=== PATIENT | male | born 1950 | race Caucasian/White ===

== ENCOUNTER → 2020-10-30 11:23 | Outpatient (CLI) | payer MEDICARE, SELFPAY ==
--- NOTE | ~2020-10-30 | XR_ITS ---
EXAMINATION: XR chest 2V DATE: 10/30/2020 11:39 INDICATION: Right-sided chest pain TECHNIQUE: PA and lateral views of the chest are obtained. COMPARISON: 03/26/2017 FINDINGS: There is a mass in the right upper lobe. Cranial migration of the minor fissure reflects ri ght upper lobe volume loss. There is no pleural effusion or pneumothorax. The cardiomediastinal silho uette is normal. There is mild thoracic spondylosis. IMPRESSION: 1. Right upper lobe mass concerning for primary bronchogenic carcinoma. Further evaluation with CT of the chest is recommended. These findings and recommendations were discussed with TANA Bruce at 1405 hours on 2020. Reviewed, dictated and finalized at location B. IMPRESSION: 1. Right upper lobe mass concerning for primary bronchogenic carcinoma. Further evaluation with CT of the chest is recommended. These findings and recommendations were discussed with TANA Bruce at 1405 hours on 10/30/2020.
== END ==
PROVIDERS: PCP Family Medicine; Visit Provider Nurse Practitioner Family
DX: R07.9 Chest pain, unspecified (principal); R91.8 Other nonspecific abnormal finding of lung field
CPT/HCPCS: 71046

== ENCOUNTER 2020-11-04 14:15 | Outpatient (CLI) | payer MEDICARE, SELFPAY ==
--- NOTE | ~2020-11-04 | CT_ITS ---
EXAMINATION: CT diagnostic chest w con DATE: 11/04/2020 14:42 INDICATION: Right upper lobe mass on chest radiograph TECHNIQUE: Transaxial computed tomographic images of the chest were obtained after the administration of 75 cc of Omnipaque 350 intravenous contrast. The dose-length product (DLP) was 197.53 mGy-cm. Ite rative reconstruction was used. COMPARISON: Chest x-ray dated 10/30/2020 FINDINGS: There is an approximately 7.9 x 4.9 cm mass in the posteromedial aspect of the right upper lobe which invades the mediastinum and insinuates posterior to the mid trachea. There are patchy nodu lar opacities of the left upper lobe. No pleural effusion or pneumothorax is identified. The heart si ze is normal. No pathologically enlarged thoracic lymph nodes are identified. There is calcified rosenda nary artery atherosclerosis. There is mild thoracic spondylosis. IMPRESSION: 1. Mass of the posterior medial right upper lobe invading the upper mediastinum, consistent with prim fran bronchogenic carcinoma. Reviewed, dictated and finalized at location A. IMPRESSION: 1. Mass of the posterior medial right upper lobe invading the upper mediastinum , consistent with primary bronchogenic carcinoma.
== END 2020-11-04 14:16 | disposition home or self-care (01) ==
LOC: ANHIMG 14:20
PROVIDERS: PCP Family Medicine; Visit Provider Nurse Practitioner Family
DX: R91.8 Other nonspecific abnormal finding of lung field (principal)
CPT/HCPCS: 71260; Q9967

== ENCOUNTER 2021-01-05 15:51 | Inpatient (IN) | payer MEDICARE, SELFPAY ==
[2021-01-05] VITALS (26 sets, daily range): BP systolic 91–128; BP diastolic 54–114; PULSE 82–105; RESP 17–28; TEMP 36.1–36.7; O2SAT 97–100; BMI 22.6
--- NOTE | ~2021-01-05 | CT_ITS ---
EXAMINATION: CT abdomen pelvis wo con DATE: 01/08/2021 08:34 INDICATION: Abdominal pain. TECHNIQUE: Computed tomography (CT) of the abdomen and pelvis was performed without intravenous contr ast. Automated exposure control and iterative reconstruction technique were employed. The dose-length product was 337.42 mGy-cm. COMPARISON: CT abdomen and pelvis 08/07/2013 FINDINGS: The visualized portions of the lung bases demonstrate minimal atelectasis. There is a small right pleural effusion. The heart size is normal. There are coronary artery calcifications. No peric ardial effusion. Calcifications in the spleen are consistent with old granulomatous disease. The gall bladder is normal in size. The pancreas and adrenal glands are normal. There are vascular calcificati ons at the unruly of the kidneys. There is mild bilateral hydronephrosis. The bladder is markedly diste nded and contains contrast. There is diverticulosis of the colon without evidence of diverticulitis. There are no pathologically enlarged lymph nodes. There is no free intraperitoneal fluid. There is mo derate lumbar spondylosis. IMPRESSION: 1. Markedly distended bladder with mild bilateral hydronephrosis. 2. Small right pleural effusion. Reviewed, dictated and finalized at location A. HT INSPECTOR
--- NOTE | ~2021-01-05 | CT_ITS ---
EXAMINATION: CT brain wo con DATE: 01/05/2021 19:20 INDICATION: Weakness. Fall. TECHNIQUE: Computed tomography (CT) of the head was performed without intravenous contrast. The mA wa s adjusted according to patient size. Iterative reconstruction technique was employed. The dose-lengt h product was 681.00 mGy-cm. COMPARISON: None FINDINGS: There is no intracranial hemorrhage, acute infarction, or abnormal intracranial mass lesion . The ventricles are normal in size. There is mucosal thickening in the paranasal sinuses. There is t hickening sclerosis of the cespedes of the sphenoid and right maxillary sinuses, consistent with chronic sinusitis. The orbits are normal. The mastoid air cells are normal. IMPRESSION: 1. Normal brain. 2. Chronic sinusitis. Reviewed, dictated and finalized at location A. UTER TECHNOLOGY INSTRUCTOR
--- NOTE | ~2021-01-05 | CT_ITS ---
EXAMINATION: CTA chest PE protocol DATE: 01/05/2021 17:28 INDICATION: Shortness of breath. TECHNIQUE: Computed tomography angiography (CTA) of the chest was performed with 100 mL Omnipaque-350 intravenous contrast timed to evaluate the pulmonary arteries. Coronal maximum intensity projection 3D-reconstructions were created by the technologist. Automated exposure control and iterative reconst ruction technique were employed. The dose-length product was 346.45 mGy-cm. COMPARISON: Chest CT 11/04/2020 FINDINGS: There is an 8.9 x 4.6 cm mass in the right upper lobe with invasion of the mediastinum and central cavitation. There is contiguous involvement of the T4 vertebral body and right fifth rib wher e there are lytic lesions of the bone. The mass measured 8.6 x 4.9 cm on 11/04/20. There is mucous in bronchus intermedius and right lower lobe and left upper lobe bronchi. Calcified right hilar lymph no simone are consistent with old granulomatous disease. There are centrilobular nodules in left upper lobe , consistent with pneumonia. There is a 6 mm nodule in left upper lobe abutting the major fissure, in creased from 5 mm. No pleural effusion. There is a right internal jugular port with tip in right atri um. There is mucous plugging in left upper lobe. The heart size is normal. No pericardial effusion. T here is no pulmonary embolus. There is moderate stenosis of left renal artery. There is mild thoracic spondylosis. IMPRESSION: 1. No pulmonary embolus. 2. Mass in right lung upper lobe with worsened involvement of the mediastinum, T4 vertebral body, and right fifth rib, consistent with primary bronchogenic carcinoma. 3. Worsened 6 mm nodule in left upper lobe suspicious for metastatic disease. 4. Multifocal mucus plugging and mild left upper lobe pneumonia. Reviewed, dictated and finalized at location A. PROCESS OPERATOR IMPRESSION: 1. No pulmonary embolus. 2. Mass in right lung upper lobe with worsened involvement of the mediastinum, T4 vertebral body, and right fifth rib, consistent with primary bronchogenic ca rcinoma. 3. Worsened 6 mm nodule in left upper lobe suspicious for metastatic disease. 4. Multifocal mucus plugging and mild left upper lobe pneumonia.
--- NOTE | 2021-01-05 15:59 | ECG_ITS ---
Measurements Intervals [place] Rate: 98 P: 90 WA: 124 QRS: 76 QRSD: 154 T: 51 QT: 386 QTc: 495 Interpretive Statements ECTOPIC ATRIAL RHYTHM RIGHT BUNDLE BRANCH BLOCK BASELINE ARTIFACT- I, II, III, AVR, AVL,A VF, V3-V6 ABNORMAL ECG Electronically Signed On 01-05-2021 20:11:25 FIELD MECHANIC/SITE LEAD by Darin Benjamin D.O.
--- NOTE | 2021-01-05 16:15 | ED.WEAKNESS ---
HPI - Weakness General Chief complaint: Weakness Stated complaint: weakness Time Seen by Provider: 01/05/21 15:56 Source: patient History of Present Illness HPI Narrative: Patient presents with generalized weakness. Reports a history of lung cancer had chemotherapy last Wednesday. Reports been weak for approximately 1 week. Has weakness as weak in the knees. Today he felt down so he wanted come to the ER for evaluation he denies striking his head denies any focal areas of pain or injury from the fall. Denies any chest pain. Does report constant shortness of breath denies any nausea vomiting or change in p.o. intake denies any changes in stool or urine output. Related Data Home Medications Medication Instructions Recorded Confirmed aspirin 81 mg tablet,delayed 81 mg PO DAILY 08/02/19 12/18/20 release atorvastatin 40 mg tablet 40 mg PO DAILY 08/02/19 12/18/20 carvedilol 25 mg tablet 25 mg PO Q12H 08/02/19 12/18/20 lisinopril 40 mg tablet 40 mg PO DAILY 08/02/19 12/18/20 Allergies Allergy/AdvReac Type Severity Reaction Status Date / Time No Known Allergies Allergy Unknown Unverified 01/05/21 16:20 Review of Systems Review of Systems: CONSTITUTIONAL: Denies fever, chills, or sweats. EYES: Denies visual changes, redness, or discharge. ENT: Denies rhinorrhea, congestion, sore throat, or otalgia. CARDIOVASCULAR: Denies chest pain, palpitations, or edema. RESPIRATORY: Denies cough GASTROINTESTINAL: Denies abdominal pain, nausea, vomiting, or diarrhea. GENITOURINARY: Denies dysuria or hematuria. SKIN: Denies rash or itching. MUSCULOSKELETAL: Denies back pain, joint pain, or myalgia. NEUROLOGIC: Denies headache, numbness, dizziness, or weakness. PSYCHIATRIC: Denies anxiety or depression. All systems reviewed & are unremarkable except as noted in HPI and below PMFSH Past Medical History Medical History CAD (coronary artery disease) COPD (chronic obstructive pulmonary disease) Dyslipidemia Hypertensive heart disease IFG (impaired fasting glucose) Social History Social History Smoking packs per day: 0.5 Smoking cigarettes per day: 10.0 Years smoked: 50 Smoking pack-years: 25.00 Tobacco type: cigarettes Second hand tobacco smoke exposure: No Alcohol intake: current Drinks per week: 6 Substance use: never Substance use type: does not use Gender identity (if verbalized by the patient): Male Sexual Orientation (if Verbalized by the Patient): Straight or Heterosexual Exam Narrative: GENERAL: Well-appearing, well-nourished, and in no acute distress. HEAD: Normocephalic, atraumatic. EYES: PERRLA and EOMI. ENT: Nares clear, no rhinorrhea or epistaxis. Mucous membranes moist. NECK: Supple. No masses. No JVD CHEST: Audible rhonchi more prominent on the right compared to the left there is diminished aeration more prevalent on the right compared to the left HEART: Regular rate and rhythm. No murmur heard. Normal peripheral pulses. ABDOMEN: Soft, nontender, nondistended, normal active bowel sounds. EXTREMITIES: Normal range of motion. No edema. SKIN: Warm, dry, no rash. NEURO: No focal deficits. Alert and oriented x3. PSYCH: Normal mood and affect. Course Reevaluation(s) Reevaluation #1: Patient ports he continues to feel weak labs are with mild abnormalities imaging concerning for worsening mass and pneumonia. Family reports they are unable to assist with getting patient around the house given his persistent symptoms, history of chemotherapy, pneumonia on imaging patient is high risk for severe sepsis he will be admitted for IV antibiotics and continued monitoring Date: 01/05/21 Time: 18:07 Vital Signs Vital signs: Vital Signs Temperature 36.4 C 01/05/21 15:50 Pulse Rate 98 01/05/21 15:50 Respiratory Rate 24 H 01/05/21 15:50 Blood Pressure 111/54 L 01/05/21 15:50 Pulse Oximet
[2021-01-05 16:25] LABS: Basophils Percent Auto 0.5 % (0.2-1.2); Eosinophils Percent Auto 0.8 % (0-4.4); Hematocrit 25.2 % (42.0-52.0); Hemoglobin 8.2 g/dL (14.0-18.0); Immature Granulocyte Absolute 0.04 K/mm3 (0.00-0.031); Immature Granulocyte Percent A 1.1 % (0-0.5); Immature Platelet Fraction Pct 5.2 % (0.9-11.2); Lymphocytes Absolute Auto 0.25 K/mm3 (0.9-3.2); Lymphocytes Percent Auto 6.6 % (18.3-44.2); Mean Corpuscular HGB Conc 32.5 g/dl (32-36); Mean Corpuscular Hemoglobin 25.9 pg (26-34); Mean Corpuscular Volume 79.7 fl (80-100); Mean Platelet Volume 10.5 fl (7.4-10.4); Monocytes Absolute Auto 0.2 K/mm3 (0.1-0.6); Monocytes Percent Auto 5.3 % (2.6-8.5); Neutrophils Absolute Auto 3.3 K/mm3 (1.3-6.7); Neutrophils Percent Auto 85.7 % (45.5-73.1); Platelet Count Result 144 k/mm3 (150-375); Red Blood Count 3.16 M/mm3 (4.6-6.20); Red Cell Distribution Width 16.9 % (11.5-14.5); White Blood Count 3.8 K/mm3 (4.5-10.0)
[2021-01-05 16:34] LABS: Alanine Aminotransferase 20 U/L (4-50); Albumin Level 3.7 g/dL (3.5-5.1); Alkaline Phosphatase 70 U/L (38-126); Anion Gap 14 mmol/L (8-16); Aspartate Amino Transferase 24 U/L (17-59); Bilirubin,Total 0.6 mg/dL (0.2-1.3); Blood Urea Nitrogen 22 mg/dL (9-20); Calcium 6.8 mg/dL (8.4-10.2); Carbon Dioxide 22 mmol/L (22-30); Chloride 97 mmol/L (98-107); Estimated CRCL calculation 55 ml/min; Estimated Glomerular Filt Rate > 60; Glucose 144 mg/dL (65-110); Potassium 3.9 mmol/L (3.4-5.0); Sodium 133 mmol/L (137-145)
[2021-01-05 17:24] LABS: Add Urine Microscopic? YES; Appearance Urine Cloudy (Clear); Bilirubin Urine Negative (Negative); Blood Urine Negative (Negative); Color Urine Yellow (Yellow); Glucose Urine UA Negative (Negative); Ketones Urine Negative (Negative); Leukocyte Esterase Ur Negative LEU/UL (Negative); Mucus Urine Rare /lpf; Nitrate Urine Negative (Negative); Protein Urine Negative (Negative); RBC Urine 0-2 /hpf (0-2); Specific Grav Ur 1.016 (1.001-1.035); Squamous Epithelial Cell Urine Rare /hpf (Few); Urobilinogen Urine Negative mg/dL (<2.0); WBC Urine 0-3 /hpf
[2021-01-05] MEDS: SODIUM CHLORIDE 0.9% IV 1,000 ML 999 ML IV CONT (18:10)
[2021-01-05 18:31] LABS: Lactic Acid Reflex 0.8 mmol/L (0.7-2.1)
--- NOTE | 2021-01-05 19:56 | PM.IMHP ---
H&P: HPI History of Present Illness Date/Time: 01/05/21 19:56 Chief Complaint: Generalized weakness Narrative: This is a 70-year-old male with past medical history significant for lung CA patient is currently undergoing radiation and chemotherapy he had his last treatment last past Wednesday he presented today to the emergency room due to generalized weakness states that has been sleeping a lot staying all day in bed poor appetite he try getting up and his knees buckled on him he has been feeling cold just overall not feeling well has a cough and chest congestion but is unable to bring anything up. He denies any loss of consciousness but his been lightheaded, denies any fevers, any rigors or chills, no nausea, vomiting or diarrhea. Preliminary workup was significant for CBC showed a hemoglobin of 8 with MCV of [address] of the chest PE protocol for no pulmonary embolus,mass in right lung upper lobe with worsened involvement of the mediastinum, T4 vertebral body, and right fifth rib, consistent with primary bronchogenic carcinoma, worsened 6 mm nodule in left upper lobe suspicious for metastatic disease,multifocal mucus plugging and mild left upper lobe pneumonia. Patient has been admitted for further treatment evaluation and management. Review of Systems Review of Systems: Feeling weak ,poor appetite, sleeping a lot, fall. Constitutional: Constitutional: Denies chills, Reports daytime sleepiness, Denies fever(s), Reports frequent falls, Reports lethargy, Denies malaise, Reports poor appetite and Reports weakness Eyes: Eyes: Denies change in vision ENT: Denies dysphagia, Denies vertigo, Denies dizziness, Denies nasal congestion, Denies nasal discharge, Denies nasal obstruction and Denies odynophagia Cardiovascular: Cardiovascular: Denies pedal edema, Denies irregular heart rhythm, Denies lightheadedness, Denies radiating jaw, neck or arm pain, Denies palpitations, Denies dyspnea, Denies dyspnea on exertion and Denies orthopnea Gastrointestinal: Gastrointestinal: Denies abdominal pain, Denies dyspepsia, Denies heartburn, Denies nausea and Denies vomiting Genitourinary: Genitourinary: Denies dysuria Musculoskeletal: Musculoskeletal: Reports muscle weakness Integumentary/Breasts: Skin/Breast: Denies rash Psychiatric: Psychiatric: Reports no additional psychiatric complaints and Reports as per HPI Endocrine: Endocrine: Reports no additional endocrine complaints and Reports as per HPI Hematologic/Lymphatic: Hematologic/Lymphatic: Reports no additional hematologic/lymphatic complaints Allergic/Immunologic: Allergic/Immunologic: Reports no additional allergic/immunologic complaints and Reports as per HPI [facility] Past Medical History Medical History CAD (coronary artery disease) COPD (chronic obstructive pulmonary disease) Dyslipidemia Hypertensive heart disease IFG (impaired fasting glucose) Social History Social History Smoking packs per day: 1 Smoking cigarettes per day: 20.0 Years smoked: 40 Smoking pack-years: 40.00 Smoking status: Former smoker Tobacco type: cigarettes Second hand tobacco smoke exposure: No Alcohol intake: current Drinks per week: 8 Substance use: never Substance use type: does not use Gender identity (if verbalized by the patient): Male Sexual Orientation (if Verbalized by the Patient): Straight or Heterosexual Spiritual care concerns: No Meds Home Medications and Allergies Home Medications Medication Instructions Recorded Confirmed Type aspirin 81 mg tablet,delayed 81 mg PO DAILY 08/02/19 12/18/20 History release atorvastatin 40 mg tablet 40 mg PO DAILY 08/02/19 12/18/20 History carvedilol 25 mg tablet 25 mg PO Q12H 08/02/19 12/18/20 History lisinopril 40 mg tablet 40 mg PO DAILY 08/02/19 12/18/20 History pantoprazole 40 mg tablet,delayed 40 mg PO BID #180 tablet 06/18/20
[2021-01-05] MEDS: SODIUM CHLORIDE 0.9% IV 1,000 ML 125 ML IV CONT (22:45)
--- NOTE | 2021-01-05 23:12 | PC.NURSE ---
This patient, Pratik Chapman Jr., was admitted to [facility] Surg Room 306-02. Patient/family oriented to hospital policies and general routines including ID bracelet, bed and alarms, visiting hours, pain management, procedures, bathroom and other care routines, personal items, smoking policy, room service/diet, and visiting hours. Information on how to activate the Rapid Response Team has been discussed. Patient/Family are encouraged to report perceived risks to care and to ask questions if they do not understand what they are told or what they should do.
[2021-01-06] VITALS (21 sets, daily range): BP systolic 97–163; BP diastolic 60–73; PULSE 72–125; RESP 16–22; TEMP 36.1–36.8; O2SAT 98–100
[2021-01-06 02:30] LABS: Glucose Point of Care 100 mg/dl (65-105)
--- NOTE | 2021-01-06 03:19 | PC.NURSE ---
Pt woke up with complaints of shortness of breath. Put patient on 2L of oxygen for comfort. Oxygen saturation is 96%, pulse is 99, blood pressure is 121/84, temperature is 97.2, respirations are 18. Brought patient down to 1L and oxygen saturation is now 99%. Patient presents with coarse lung sounds and wheezing on expiration. Called doctor Foster at 0320 wanting orders for respiratory treatments. No response at this time. Will call back in 15 minutes.
--- NOTE | 2021-01-06 04:50 | PC.NURSE ---
Spoke with Dr Foster at 0400 regarding patients changing condition. New orders were given and put in.
[2021-01-06] MEDS: ALBUTEROL SULFATE NEB 2.5 MG/0.5 ML INH INHALATION ×5 (05:56→19:48)
[2021-01-06] MEDS: IPRATROPIUM BR 0.02% INH SOLN 0.5 MG/2.5 ML VIAL INHALATION ×5 (05:56→19:48)
[2021-01-06] MEDS: ACETYLCYSTEINE 20% INHAL SOLN 800 MG/4 ML VIAL 200 MG INHALATION ×2 (08:12→19:48)
[2021-01-06 09:11] LABS: Hematocrit 22.7 % (42.0-52.0); Hemoglobin 7.3 g/dL (14.0-18.0); Mean Corpuscular HGB Conc 32.2 g/dl (32-36); Mean Corpuscular Hemoglobin 25.1 pg (26-34); Mean Platelet Volume 10.4 fl (7.4-10.4); Platelet Count Result 115 k/mm3 (150-375); Red Blood Count 2.91 M/mm3 (4.6-6.20); Red Cell Distribution Width 16.9 % (11.5-14.5); White Blood Count 3.3 K/mm3 (4.5-10.0)
[2021-01-06 09:16] LABS: Anion Gap 11 mmol/L (8-16); Blood Urea Nitrogen 15 mg/dL (9-20); Calcium 6.2 mg/dL (8.4-10.2); Carbon Dioxide 25 mmol/L (22-30); Chloride 97 mmol/L (98-107); Estimated CRCL calculation 60 ml/min; Estimated Glomerular Filt Rate > 60; Glucose 101 mg/dL (65-110); Potassium 3.3 mmol/L (3.4-5.0); Sodium 133 mmol/L (137-145)
[2021-01-06] MEDS: ATORVASTATIN 40 MG TABLET PO (10:09)
[2021-01-06] MEDS: ASPIRIN 81 MG ENTERIC TABLET PO (10:09)
[2021-01-06] MEDS: PANTOPRAZOLE 40 MG TABLET PO ×2 (10:09→17:00)
--- NOTE | 2021-01-06 10:20 | PM.IMPN ---
Progress Note: A&P Assessment and Plan (1) Pneumonia: Qualifiers: Laterality: right Lung location: upper lobe of lung Pneumonia type: due to unspecified organism Qualified Code(s): J18.9 - Pneumonia, unspecified organism Code(s): J18.9 - Pneumonia, unspecified organism Status: Acute Assessment and Plan: Chest CTA shows mucus plugging of the left upper lobe and he presents with respiratory symptoms. No fever or leukocytosis, though he is immunocompromised and likely not able to amount immune response Continue IV Zosyn Blood cultures are pending Supportive care to include bronchodilators, expectorants, antipyretics, and incentive spirometry Appreciate respiratory therapy evaluation. Continue with CPT techniques Currently requiring 1 L per nasal cannula, though no episodes of hypoxia are noted. Continue supplemental O2 as needed with goal saturation 92% or above, wean to goal. (2) Malignant neoplasm of right upper lobe of lung: Code(s): C34.11 - Malignant neoplasm of upper lobe, right bronchus or lung Status: Acute Assessment and Plan: CTA shows right upper lung mass with involvement of the mediastinum, T4 vertebral body, and right 5th rib with. He is undergoing chemotherapy with Taxol and carboplatin, last chemo was 12/31/2020. Also undergoing radiation therapy Wednesday-Wednesday. Managed by oncologist, Dr. Brown at [facility]. Spoke with their office via phone and reviewed imaging reports, no change from prior imaging 12/17/2020 per phone report. The patient is scheduled for an appointment tomorrow with his oncologist. Their office is aware of his hospitalization and will contact him to reschedule follow-up, possibly for 01/10/2021 (3) COPD (chronic obstructive pulmonary disease): Code(s): J44.9 - Chronic obstructive pulmonary disease, unspecified Status: Acute Assessment and Plan: No wheezing, not in acute exacerbation. Continue bronchodilators (4) CAD (coronary artery disease): Code(s): I25.10 - Atherosclerotic heart disease of [place] coronary artery without angina pectoris Status: Acute Assessment and Plan: No acute issues. Continue carvedilol and lisinopril. Nitroglycerin p.r.n. (5) Weakness: Code(s): R53.1 - Weakness Status: Acute Assessment and Plan: Likely secondary to malignancy and recent chemotherapy and radiation treatments, likely worsened by pneumonia. He reports he ?collapsed? and his legs and knees gave out on him. He did not fall and his son was able to lower him to the ground. Appreciate PT/OT evals. (6) Poor appetite: Code(s): R63.0 - Anorexia Status: Acute Assessment and Plan: Decreased appetite. Continue gentle IV fluids in light of poor PO intake. Dietary supplements t.i.d.. Encourage p.o. intake. Hopefully his appetite will improve as he begins feeling better with treatment as described above. (7) Pancytopenia: Code(s): D61.818 - Other pancytopenia Status: Acute Assessment and Plan: Likely related to chemotherapy. White blood cell count 3300. Platelets slightly decreased at 115k. Hemoglobin and hematocrit decreased on baseline, though no prior labs to establish a baseline. Hemoglobin was 8.2 on presentation and declined to 7.3 today. He denies any episodes of bleeding. Vital signs are stable. Will repeat H&H this afternoon to ensure remaining stable, will also check iron panel. Consider Hematology consultation if no further improvement. (8) Hypokalemia: Code(s): E87.6 - Hypokalemia Status: Acute Assessment and Plan: Likely secondary to poor p.o. intake. Administer KCL 20 mEq p.o. one time. Continue to monitor BMP Subjective Date/time seen: 01/06/21 10:20 Interval history: Date of service: 01/06/2021 Pratik Chapman is a 70 year old male with a history of CAD, COPD, HTN, hyperlipidemi
[2021-01-06] MEDS: ONDANSETRON INJ 4 MG/2 ML VIAL IV PUSH (11:28)
[2021-01-06 12:43] LABS: Hematocrit 26.3 % (42.0-52.0); Hemoglobin 8.3 g/dL (14.0-18.0)
[2021-01-06] MEDS: carvediloL 25 MG TABLET PO ×2 (12:52→20:54)
[2021-01-06] MEDS: POTASSIUM CHLORIDE 20 MEQ TABLET PO (12:52)
[2021-01-06 13:17] LABS: Iron 54 ug/dL (49-181)
[2021-01-06 13:18] LABS: Percent Iron Saturation 18 % (20-50)
[2021-01-06 14:05] LABS: Glucose Point of Care 192 mg/dl (65-105)
--- NOTE | 2021-01-06 18:20 | PC.NURSE ---
Attempted to obtain orthostatics, but pt unable/unwilling to stand. Pt appears very anxious about having to stand.
--- NOTE | 2021-01-06 19:59 | PCRCNOTE ---
pt unable to do full CPT treatment due to pain in the chest from the vest- went until 4 minutes left
[2021-01-07] VITALS (25 sets, daily range): BP systolic 108–129; BP diastolic 59–89; PULSE 76–93; RESP 16–20; TEMP 36.2–38.1; O2SAT 92–100
[2021-01-07] MEDS: IPRATROPIUM BR 0.02% INH SOLN 0.5 MG/2.5 ML VIAL INHALATION ×5 (00:12→21:12)
[2021-01-07] MEDS: ALBUTEROL SULFATE NEB 2.5 MG/0.5 ML INH INHALATION ×5 (00:12→21:12)
[2021-01-07] MEDS: SODIUM CHLORIDE 0.9% IV 1,000 ML 50 ML IV CONT (03:18)
[2021-01-07 07:33] LABS: Basophils Percent Auto 0.6 % (0.2-1.2); Eosinophils Absolute Auto 0.1 K/mm3 (0-0.3); Eosinophils Percent Auto 1.5 % (0-4.4); Hematocrit 22.3 % (42.0-52.0); Immature Granulocyte Absolute 0.04 K/mm3 (0.00-0.031); Immature Granulocyte Percent A 1.2 % (0-0.5); Lymphocytes Absolute Auto 0.25 K/mm3 (0.9-3.2); Lymphocytes Percent Auto 7.6 % (18.3-44.2); Mean Corpuscular HGB Conc 30.9 g/dl (32-36); Mean Corpuscular Hemoglobin 25.2 pg (26-34); Mean Corpuscular Volume 81.4 fl (80-100); Mean Platelet Volume 10.3 fl (7.4-10.4); Monocytes Absolute Auto 0.3 K/mm3 (0.1-0.6); Monocytes Percent Auto 10.3 % (2.6-8.5); Neutrophils Absolute Auto 2.6 K/mm3 (1.3-6.7); Neutrophils Percent Auto 78.8 % (45.5-73.1); Platelet Count Result 94 k/mm3 (150-375); Red Blood Count 2.74 M/mm3 (4.6-6.20); Red Cell Distribution Width 17.3 % (11.5-14.5); White Blood Count 3.3 K/mm3 (4.5-10.0)
[2021-01-07 07:34] LABS: Hemoglobin 6.9 g/dL (14.0-18.0)
[2021-01-07 07:49] LABS: Alanine Aminotransferase 17 U/L (4-50); Albumin Level 3.2 g/dL (3.5-5.1); Alkaline Phosphatase 58 U/L (38-126); Anion Gap 9 mmol/L (8-16); Aspartate Amino Transferase 25 U/L (17-59); Bilirubin,Total 0.6 mg/dL (0.2-1.3); Blood Urea Nitrogen 15 mg/dL (9-20); Carbon Dioxide 25 mmol/L (22-30); Chloride 99 mmol/L (98-107); Estimated CRCL calculation 60 ml/min; Estimated Glomerular Filt Rate > 60; Glucose 99 mg/dL (65-110); Magnesium < 0.2 mg/dL (1.6-2.3); Potassium 3.4 mmol/L (3.4-5.0); Sodium 133 mmol/L (137-145)
--- NOTE | 2021-01-07 08:16 | PM.IMPN ---
Progress Note: A&P Assessment and Plan (1) Pneumonia: Qualifiers: Laterality: right Lung location: upper lobe of lung Pneumonia type: due to unspecified organism Qualified Code(s): J18.9 - Pneumonia, unspecified organism Code(s): J18.9 - Pneumonia, unspecified organism Status: Acute Assessment and Plan: Chest CTA shows mucus plugging of the left upper lobe and he presents with respiratory symptoms. No fever or leukocytosis, though he is immunocompromised and likely not able to amount immune response Continue IV Zosyn Blood cultures are pending Supportive care to include bronchodilators, expectorants, antipyretics, and incentive spirometry Appreciate respiratory therapy evaluation. Continue with CPT techniques Currently requiring 1 L per nasal cannula, though no episodes of hypoxia are noted. Continue supplemental O2 as needed with goal saturation 92% or above, wean to goal. continue acetyl cystein inhalation, PEP therapy, (2) Malignant neoplasm of right upper lobe of lung: Code(s): C34.11 - Malignant neoplasm of upper lobe, right bronchus or lung Status: Acute Assessment and Plan: CTA shows right upper lung mass with involvement of the mediastinum, T4 vertebral body, and right 5th rib with. He is undergoing chemotherapy with Taxol and carboplatin, last chemo was 12/31/2020. Also undergoing radiation therapy Wednesday-Wednesday. Managed by oncologist, Dr. Brown at [facility]. Spoke with their office via phone and reviewed imaging reports, no change from prior imaging 12/17/2020 per phone report. The patient is scheduled for an appointment tomorrow with his oncologist. Their office is aware of his hospitalization and will contact him to reschedule follow-up, possibly for 01/10/2021 (3) COPD (chronic obstructive pulmonary disease): Code(s): J44.9 - Chronic obstructive pulmonary disease, unspecified Status: Acute Assessment and Plan: No wheezing, not in acute exacerbation. Continue bronchodilators (4) CAD (coronary artery disease): Code(s): I25.10 - Atherosclerotic heart disease of [place] coronary artery without angina pectoris Status: Acute Assessment and Plan: No acute issues. Continue carvedilol and lisinopril. Nitroglycerin p.r.n. (5) Weakness: Code(s): R53.1 - Weakness Status: Acute Assessment and Plan: Likely secondary to malignancy and recent chemotherapy and radiation treatments, likely worsened by pneumonia. He reports he ?collapsed? and his legs and knees gave out on him. He did not fall and his son was able to lower him to the ground. Appreciate PT/OT evals. (6) Poor appetite: Code(s): R63.0 - Anorexia Status: Acute Assessment and Plan: Decreased appetite. Continue gentle IV fluids in light of poor PO intake. Dietary supplements t.i.d.. Encourage p.o. intake. Hopefully his appetite will improve as he begins feeling better with treatment as described above. (7) Pancytopenia: Code(s): D61.818 - Other pancytopenia Status: Acute Assessment and Plan: Likely related to chemotherapy. White blood cell count 3300. Platelets slightly decreased at 115k. Hemoglobin and hematocrit decreased on baseline, though no prior labs to establish a baseline. Hemoglobin was 8.2 on presentation and declined to 7.3 today. He denies any episodes of bleeding. Vital signs are stable. Will repeat H&H this afternoon to ensure remaining stable, will also check iron panel. Consider Hematology consultation if no further improvement. hb down to 6.9, will transfuse one unit prbc. check occult blood for any bleeding source. likely from chemotherapy. Will get CT abdomen and pelvis to rule out any occult bleeding due to drop in his H&H since admission (8) Hypokalemia: Code(s): E87.6 - Hypokalemia Status: Acute Assessment and Plan: Likely secondary
[2021-01-07] MEDS: ACETYLCYSTEINE 20% INHAL SOLN 800 MG/4 ML VIAL 200 MG INHALATION ×2 (08:28→21:12)
[2021-01-07] MEDS: MAGNESIUM SULF 4 GM/WATER100ML 4 GM/100 ML BAG IVPB (09:05)
[2021-01-07] MEDS: POTASSIUM CHLORIDE 20 MEQ TABLET 40 MEQ PO (09:11)
[2021-01-07] MEDS: ATORVASTATIN 40 MG TABLET PO (09:12)
[2021-01-07] MEDS: ASPIRIN 81 MG ENTERIC TABLET PO (09:12)
[2021-01-07] MEDS: carvediloL 25 MG TABLET PO ×2 (09:12→21:16)
[2021-01-07] MEDS: PANTOPRAZOLE 40 MG TABLET PO ×2 (09:12→17:18)
--- NOTE | 2021-01-07 10:30 | PC.NURSE ---
On 01/07/21, the student, [Ish Marie ], provided care and completed [facility] documentation on this patient. I have reviewed the student's documentation and agree with the findings.
[2021-01-07 11:13] LABS: IFOB Positive Control Positive; Immunochemical Fecal Occult Bl Positive (N)
--- NOTE | 2021-01-07 13:09 | PCRCNOTE ---
Window of time for administration has passed. See next scheduled administration.
[2021-01-07] MEDS: SODIUM CHLORIDE 0.9% IV 250 ML 30 ML IV CONT (13:25)
[2021-01-08] VITALS (16 sets, daily range): BP systolic 101–123; BP diastolic 47–65; PULSE 75–92; RESP 16–18; TEMP 36.4–36.8; O2SAT 93–100
[2021-01-08] MEDS: ALBUTEROL SULFATE NEB 2.5 MG/0.5 ML INH INHALATION ×5 (00:33→21:54)
[2021-01-08] MEDS: IPRATROPIUM BR 0.02% INH SOLN 0.5 MG/2.5 ML VIAL INHALATION ×5 (00:33→21:54)
[2021-01-08] MEDS: SODIUM CHLORIDE 0.9% IV 1,000 ML 50 ML IV CONT (06:22)
[2021-01-08 06:30] LABS: Basophils Percent Auto 0.3 % (0.2-1.2); Eosinophils Absolute Auto 0.1 K/mm3 (0-0.3); Eosinophils Percent Auto 1.7 % (0-4.4); Hematocrit 25.5 % (42.0-52.0); Immature Granulocyte Absolute 0.04 K/mm3 (0.00-0.031); Immature Granulocyte Percent A 1.4 % (0-0.5); Lymphocytes Absolute Auto 0.29 K/mm3 (0.9-3.2); Lymphocytes Percent Auto 9.9 % (18.3-44.2); Mean Corpuscular HGB Conc 31.4 g/dl (32-36); Mean Corpuscular Hemoglobin 25.5 pg (26-34); Mean Corpuscular Volume 81.2 fl (80-100); Mean Platelet Volume 10.1 fl (7.4-10.4); Monocytes Absolute Auto 0.3 K/mm3 (0.1-0.6); Monocytes Percent Auto 10.5 % (2.6-8.5); Neutrophils Absolute Auto 2.2 K/mm3 (1.3-6.7); Neutrophils Percent Auto 76.2 % (45.5-73.1); Platelet Count Result 99 k/mm3 (150-375); Red Blood Count 3.14 M/mm3 (4.6-6.20); White Blood Count 2.9 K/mm3 (4.5-10.0)
[2021-01-08 06:36] LABS: Anion Gap 9 mmol/L (8-16); Blood Urea Nitrogen 10 mg/dL (9-20); Carbon Dioxide 25 mmol/L (22-30); Chloride 101 mmol/L (98-107); Estimated CRCL calculation 67 ml/min; Estimated Glomerular Filt Rate > 60; Glucose 96 mg/dL (65-110); Magnesium 1.1 mg/dL (1.6-2.3); Potassium 3.2 mmol/L (3.4-5.0); Sodium 135 mmol/L (137-145)
--- NOTE | 2021-01-08 08:28 | PC.NURSE ---
Pt transfers CT scan via bed at 0825.
[2021-01-08] MEDS: MAGNESIUM SULF 2 GM/WATER 50ML 2 GM/50 ML BAG IVPB (08:44)
[2021-01-08] MEDS: POTASSIUM CHLORIDE 20 MEQ TABLET 40 MEQ PO (08:44)
[2021-01-08] MEDS: carvediloL 25 MG TABLET PO ×2 (08:44→23:00)
[2021-01-08] MEDS: ATORVASTATIN 40 MG TABLET PO (08:44)
[2021-01-08] MEDS: ASPIRIN 81 MG ENTERIC TABLET PO (08:46)
[2021-01-08] MEDS: PANTOPRAZOLE 40 MG TABLET PO ×2 (08:46→18:17)
[2021-01-08] MEDS: FLUTICASONE PROPIONATE 0.05% NA SPR 16 GM BTL (*BKC) 1 SPRAY NASAL (08:47)
--- NOTE | 2021-01-08 09:41 | PM.IMPN ---
Progress Note: A&P Assessment and Plan (1) Pneumonia: Qualifiers: Laterality: right Lung location: upper lobe of lung Pneumonia type: due to unspecified organism Qualified Code(s): J18.9 - Pneumonia, unspecified organism Code(s): J18.9 - Pneumonia, unspecified organism Status: Acute Assessment and Plan: Chest CTA shows mucus plugging of the left upper lobe and he presents with respiratory symptoms. No fever or leukocytosis, though he is immunocompromised and likely not able to amount immune response Continue IV Zosyn Blood cultures are pending Supportive care to include bronchodilators, expectorants, antipyretics, and incentive spirometry Appreciate respiratory therapy evaluation. Continue with CPT techniques Currently requiring 1 L per nasal cannula, though no episodes of hypoxia are noted. Continue supplemental O2 as needed with goal saturation 92% or above, wean to goal. continue acetyl cystein inhalation, PEP therapy, (2) Malignant neoplasm of right upper lobe of lung: Code(s): C34.11 - Malignant neoplasm of upper lobe, right bronchus or lung Status: Acute Assessment and Plan: CTA shows right upper lung mass with involvement of the mediastinum, T4 vertebral body, and right 5th rib with. He is undergoing chemotherapy with Taxol and carboplatin, last chemo was 12/31/2020. Also undergoing radiation therapy Wednesday-Wednesday. Managed by oncologist, Dr. Brown at [facility]. Spoke with their office via phone and reviewed imaging reports, no change from prior imaging 12/17/2020 per phone report. The patient is scheduled for an appointment tomorrow with his oncologist. Their office is aware of his hospitalization and will contact him to reschedule follow-up, possibly for 01/10/2021 (3) COPD (chronic obstructive pulmonary disease): Code(s): J44.9 - Chronic obstructive pulmonary disease, unspecified Status: Acute Assessment and Plan: No wheezing, not in acute exacerbation. Continue bronchodilators (4) CAD (coronary artery disease): Code(s): I25.10 - Atherosclerotic heart disease of [place] coronary artery without angina pectoris Status: Acute Assessment and Plan: No acute issues. Continue carvedilol and lisinopril. Nitroglycerin p.r.n. (5) Weakness: Code(s): R53.1 - Weakness Status: Acute Assessment and Plan: Likely secondary to malignancy and recent chemotherapy and radiation treatments, likely worsened by pneumonia. He reports he ?collapsed? and his legs and knees gave out on him. He did not fall and his son was able to lower him to the ground. Appreciate PT/OT evals. (6) Poor appetite: Code(s): R63.0 - Anorexia Status: Acute Assessment and Plan: Decreased appetite. Continue gentle IV fluids in light of poor PO intake. Dietary supplements t.i.d.. Encourage p.o. intake. Hopefully his appetite will improve as he begins feeling better with treatment as described above. (7) Pancytopenia: Code(s): D61.818 - Other pancytopenia Status: Acute Assessment and Plan: Likely related to chemotherapy. White blood cell count 3300. Platelets slightly decreased at 115k. Hemoglobin and hematocrit decreased on baseline, though no prior labs to establish a baseline. Hemoglobin was 8.2 on presentation and declined to 7.3 today. He denies any episodes of bleeding. Vital signs are stable. Will repeat H&H this afternoon to ensure remaining stable, will also check iron panel. Consider Hematology consultation if no further improvement. hb down to 6.9, will transfuse one unit prbc. check occult blood for any bleeding source. likely from chemotherapy. Will get CT abdomen and pelvis to rule out any occult bleeding due to drop in his H&H since admission 01/08 [address] back positive CT abdomen and pelvis without any masses however noted to have bilateral hydronephrosis with d
--- NOTE | 2021-01-08 11:00 | PC.NURSE ---
On 01/08/21, the student, Romina Rivera, provided care and completed [facility] documentation on this patient. I have reviewed the student's documentation and agree with the findings.
[2021-01-08] MEDS: CALCIUM GLUC 1,000 MG/NS 50 ML 1,000 MG/50 ML BAG 100 MG IVPB (11:42)
[2021-01-08] MEDS: TAMSULOSIN HCL 0.4 MG CAPSULE PO (11:43)
--- NOTE | 2021-01-08 14:00 | PCRCNOTE ---
Past window of treatment time.
--- NOTE | 2021-01-08 16:30 | WPDGICN ---
Assessment and Plan Assessment and plan (1) Acute on chronic anemia: Code(s): D64.9 - Anemia, unspecified Status: Acute Assessment and Plan: could be multifactorial, he received chemotherapy last week and also noted now pancytopenia, also he has advanced lung cancer and now with pneumonia no over signs of gib (2) Occult blood in stools: Code(s): R19.5 - Other fecal abnormalities Status: Acute Assessment and Plan: I do not think that needs scope unless obvious gib he says that few years ago had complete GI work up with negative scopes and even capsule of course if gib or worsening anemia then we can proceed with scopes (3) Metastatic lung cancer (metastasis from lung to other site): Code(s): C34.90 - Malignant neoplasm of unspecified part of unspecified bronchus or lung Status: Acute Assessment and Plan: he is undergoing treatment as outpatient (4) Pancytopenia: Code(s): D61.818 - Other pancytopenia Status: Acute Assessment and Plan: most likely from chemothearpy (5) Distended bladder: Code(s): N32.89 - Other specified disorders of bladder Status: Acute Assessment and Plan: resolved after catheter and better (6) Pneumonia: Qualifiers: Laterality: right Lung location: upper lobe of lung Pneumonia type: due to unspecified organism Qualified Code(s): J18.9 - Pneumonia, unspecified organism Code(s): J18.9 - Pneumonia, unspecified organism Status: Acute Assessment and Plan: on abx (7) Poor appetite: Code(s): R63.0 - Anorexia Status: Acute (8) CAD (coronary artery disease): Code(s): I25.10 - Atherosclerotic heart disease of [place] coronary artery without angina pectoris Status: Acute GI Consult Note Consult date/time: 01/08/21 16:30 Reason for consult: fobt+, acute on chronic anemia HPI: Pratik Justa Ari . is a 70 year old male with past medical history of lung CA patient who had radiation treatment last Wednesday and feeling sick since, also has been getting chemotherapy every Wednesday. He came here with progressive generalized weakness since Wednesday, fatigue and poor appetite, also feeling cold and just not feeling well. Finally came to ER, hemoglobin 8, also had CT of the chest PE protocol- reviewed, negative for pulmonary embolus, mass in right lung upper lobe with worsened involvement of the mediastinum, T4 vertebral body, and right fifth rib, consistent with primary bronchogenic carcinoma, worsened 6 mm nodule in left upper lobe suspicious for metastatic disease,multifocal mucus plugging and mild left upper lobe pneumonia. He also had lower abdominal discomfort and unable to urinate, then had CT abdomen that showed markedly distended bladder with mild bilateral hydronephrosis, small right pleural effusion. Had bladder catheter with about 1 liter urine and significant relief, doing better now. Also noted hb down 6.9 but responded to blood transfusion. No overt gib, no melena but FOBT +. He says that around 2011 had episode of anemia after had cardiac stents. He had EGD, colonoscopy and even SB capsule endoscopy without any findings. Review of Systems Constitutional: Constitutional: Reports fatigue and Reports weakness Eyes: Eyes: Denies blurry vision ENT: Reports Normal hearing present Cardiovascular: Cardiovascular: Reports no additional cardiovascular complaints Respiratory: Respiratory: Reports cough Gastrointestinal: Gastrointestinal: Denies nausea Genitourinary: Comments: urinary retention Musculoskeletal: Musculoskeletal: Denies arthralgias Integumentary/Breasts: Skin/Breast: Denies dry skin Neurologic: Denies headache(s) Psychiatric: Psychiatric: Reports no additional psychiatric complaints [facility] Past Medical History Medical History (Updated 01/08/21 @ 16:39 by Husam Jo MD) Acute on chronic anemia CAD (coronary artery disease)
[2021-01-08] MEDS: ACETYLCYSTEINE 20% INHAL SOLN 800 MG/4 ML VIAL 200 MG INHALATION (21:55)
[2021-01-09] VITALS (18 sets, daily range): BP systolic 108–121; BP diastolic 49–60; PULSE 70–78; RESP 16–20; TEMP 36.3–36.6; O2SAT 93–100
[2021-01-09] MEDS: IPRATROPIUM BR 0.02% INH SOLN 0.5 MG/2.5 ML VIAL INHALATION ×6 (00:42→20:17)
[2021-01-09] MEDS: ALBUTEROL SULFATE NEB 2.5 MG/0.5 ML INH INHALATION ×6 (00:42→20:17)
[2021-01-09 06:48] LABS: Alanine Aminotransferase 24 U/L (4-50); Alkaline Phosphatase 96 U/L (38-126); Anion Gap 7 mmol/L (8-16); Aspartate Amino Transferase 26 U/L (17-59); Bilirubin,Total 0.3 mg/dL (0.2-1.3); Blood Urea Nitrogen 8 mg/dL (9-20); Calcium 6.4 mg/dL (8.4-10.2); Carbon Dioxide 23 mmol/L (22-30); Chloride 98 mmol/L (98-107); Estimated CRCL calculation 76 ml/min; Estimated Glomerular Filt Rate > 60; Glucose 91 mg/dL (65-110); Magnesium 1.3 mg/dL (1.6-2.3); Potassium 3.3 mmol/L (3.4-5.0); Sodium 128 mmol/L (137-145)
[2021-01-09] MEDS: carvediloL 25 MG TABLET PO ×2 (09:10→21:32)
[2021-01-09] MEDS: TAMSULOSIN HCL 0.4 MG CAPSULE PO ×2 (09:10→21:33)
[2021-01-09] MEDS: PANTOPRAZOLE 40 MG TABLET PO ×2 (09:10→17:53)
[2021-01-09] MEDS: ATORVASTATIN 40 MG TABLET PO (09:10)
[2021-01-09] MEDS: ASPIRIN 81 MG ENTERIC TABLET PO (09:10)
[2021-01-09] MEDS: ACETYLCYSTEINE 20% INHAL SOLN 800 MG/4 ML VIAL 200 MG INHALATION (09:40)
[2021-01-09] MEDS: MAGNESIUM SULF 4 GM/WATER100ML 4 GM/100 ML BAG IVPB (11:03)
[2021-01-09] MEDS: POTASSIUM CHLORIDE 20 MEQ TABLET 40 MEQ PO (11:06)
[2021-01-09 12:35] LABS: Basophils Percent Auto 0.3 % (0.2-1.2); Eosinophils Percent Auto 1.3 % (0-4.4); Hematocrit 23.4 % (42.0-52.0); Hemoglobin 7.4 g/dL (14.0-18.0); Immature Granulocyte Absolute 0.02 K/mm3 (0.00-0.031); Immature Granulocyte Percent A 0.7 % (0-0.5); Lymphocytes Absolute Auto 0.27 K/mm3 (0.9-3.2); Mean Corpuscular HGB Conc 31.6 g/dl (32-36); Mean Corpuscular Hemoglobin 26.7 pg (26-34); Mean Corpuscular Volume 84.5 fl (80-100); Monocytes Absolute Auto 0.5 K/mm3 (0.1-0.6); Monocytes Percent Auto 16.7 % (2.6-8.5); Neutrophils Absolute Auto 2.2 K/mm3 (1.3-6.7); Platelet Count Result 96 k/mm3 (150-375); Red Blood Count 2.77 M/mm3 (4.6-6.20); Red Cell Distribution Width 17.4 % (11.5-14.5)
--- NOTE | 2021-01-09 14:44 | P.PNIM_ITS ---
Progress Note: A&P Assessment and Plan (1) Pneumonia: Qualifiers: Laterality: right Lung location: upper lobe of lung Pneumonia type: due to unspecified organism Qualified Code(s): J18.9 - Pneumonia, unspecified organism Code(s): J18.9 - Pneumonia, unspecified organism Status: Acute Assessment and Plan: Chest CTA shows mucus plugging of the left upper lobe and he presents with respiratory symptoms. No fever or leukocytosis, though he is immunocompromised and likely not able to amount immune response * Continue IV Zosyn * Blood cultures are pending * Supportive care to include bronchodilators, expectorants, antipyretics, and incentive spirometry * Appreciate respiratory therapy evaluation. Continue with CPT techniques * Currently requiring 1 L per nasal cannula, though no episodes of hypoxia are noted. Continue supplemental O2 as needed with goal saturation 92% or above, wean to goal. * continue acetyl cystein inhalation, PEP therapy, (2) Malignant neoplasm of right upper lobe of lung: Code(s): C34.11 - Malignant neoplasm of upper lobe, right bronchus or lung Status: Acute Assessment and Plan: CTA shows right upper lung mass with involvement of the mediastinum, T4 vertebral body, and right 5th rib with. He is undergoing chemotherapy with Taxol and carboplatin, last chemo was 12/31/2020. Also undergoing radiation therapy Wednesday-Wednesday. Managed by oncologist, Dr. Brown at [facility]. Spoke with their office via phone and reviewed imaging reports, no change from prior imaging 12/17/2020 per phone report. The patient is scheduled for an appointment tomorrow with his oncologist. Their office is aware of his hospitalization and will contact him to reschedule follow-up, possibly for 01/10/2021 (3) COPD (chronic obstructive pulmonary disease): Code(s): J44.9 - Chronic obstructive pulmonary disease, unspecified Status: Acute Assessment and Plan: No wheezing, not in acute exacerbation. Continue bronchodilators (4) CAD (coronary artery disease): Code(s): I25.10 - Atherosclerotic heart disease of [place] coronary artery without angina pectoris Status: Acute Assessment and Plan: No acute issues. Continue carvedilol and lisinopril. Nitroglycerin p.r.n. (5) Weakness: Code(s): R53.1 - Weakness Status: Acute Assessment and Plan: Likely secondary to malignancy and recent chemotherapy and radiation treatments, likely worsened by pneumonia. He reports he ?collapsed? and his legs and knees gave out on him. He did not fall and his son was able to lower him to the ground. Appreciate PT/OT evals. (6) Poor appetite: Code(s): R63.0 - Anorexia Status: Acute Assessment and Plan: Decreased appetite. Continue gentle IV fluids in light of poor PO intake. Dietary supplements t.i.d.. Encourage p.o. intake. Hopefully his appetite will improve as he begins feeling better with treatment as described above. (7) Pancytopenia: Code(s): D61.818 - Other pancytopenia Status: Acute Assessment and Plan: Likely related to chemotherapy. White blood cell count 3300. Platelets slightly decreased at 115k. Hemoglobin and hematocrit decreased on baseline, though no prior labs to establish a baseline. Hemoglobin was 8.2 on presentation and declined to 7.3 today. He denies any episodes of bleeding. Vital signs are stable. Will repeat H&H this afternoon to ensure remaining stable, will also check iron panel. Consider Hematology consultation if no further i
--- NOTE | 2021-01-09 14:54 | PC.NURSE ---
On 01/09/21, the student, Kwame [facility], provided care [facility] I have reviewed the student's documentation and agree with the findings.
--- NOTE | 2021-01-09 17:48 | WPDGIPROGNO ---
Progress Note: A&P Assessment and Plan (1) Occult blood in stools: Code(s): R19.5 - Other fecal abnormalities Status: Acute Assessment and Plan: no overt gib, no need to proceed with scopes he had chemotherapy few days ago that caused pancytopenia but stable also here for pneumonia of course if obvious bleeding then we can do scopes- stable condition and recovering from pneumonia and also bladder retention tolerating diet (2) Pancytopenia: Code(s): D61.818 - Other pancytopenia Status: Acute (3) Pneumonia: Qualifiers: Laterality: right Lung location: upper lobe of lung Pneumonia type: due to unspecified organism Qualified Code(s): J18.9 - Pneumonia, unspecified organism Code(s): J18.9 - Pneumonia, unspecified organism Status: Acute Assessment and Plan: on treatment, better (4) Acute on chronic anemia: Code(s): D64.9 - Anemia, unspecified Status: Acute Assessment and Plan: stable (5) Metastatic lung cancer (metastasis from lung to other site): Code(s): C34.90 - Malignant neoplasm of unspecified part of unspecified bronchus or lung Status: Acute Assessment and Plan: by oncology, had recent treatment (6) Distended bladder: Code(s): N32.89 - Other specified disorders of bladder Status: Acute Assessment and Plan: better after cath Subjective Date/time seen: 01/09/21 17:48 Interval history: feeling better and tolerating regular diet. He is comfortable having dinner and denies overt GIB Review of Systems Review of Systems: All systems reviewed & are unremarkable except as noted in HPI and below Exam Const: General: comfortable and no acute distress HENMT: General nose exam: Normal nares present Eyes: General: appearance normal, both eyes and all related structures Neck: Neck: no JVD Resp: Effort & Inspection: normal respiratory effort Other: few rhonchi, no wheezes Cardio: Rate: regular rate Rhythm: regular rhythm GI: Inspection: non-distended GI Palp: Yes Soft to palpation and No Guarding due to palpation present (GI) Auscultation: normal bowel sounds Skin: General skin exam: normal color Neuro: Speech: normal speech Motor exam (neuro): Normal motor muscle tone present throughout Extrem: General: normal to inspection Psych: Mental Status: mental status grossly normal Objective Data Vital Signs Vital Signs: Vital Signs - 24 hr 01/08/21 21:55 01/08/21 22:00 01/08/21 22:01 Temperature 97.6 F Pulse Rate 80 76 84 Respiratory Rate 18 18 18 Blood Pressure 101/47 L Pulse Oximetry 100 01/08/21 23:00 01/09/21 00:42 01/09/21 00:50 Temperature Pulse Rate 80 76 78 Respiratory Rate 18 18 Blood Pressure Pulse Oximetry 01/09/21 05:00 01/09/21 05:08 01/09/21 06:00 Temperature 97.7 F Pulse Rate 78 76 70 Respiratory Rate 18 18 18 Blood Pressure 116/60 Pulse Oximetry 96 01/09/21 08:00 01/09/21 09:10 01/09/21 09:45 Temperature Pulse Rate 74 77 Respiratory Rate 16 Blood Pressure Pulse Oximetry 93 01/09/21 10:00 01/09/21 11:30 01/09/21 11:39 Temperature Pulse Rate 78 74 76 Respiratory Rate 18 18 18 Blood Pressure Pulse Oximetry 01/09/21 14:00 Temperature 97.4 F L Pulse Rate 73 Respiratory Rate 20 Blood Pressure 121/49 L Pulse Oximetry 100 Intake/Output Intake/Output: Intake & Output 01/06/21 01/07/21 01/08/21 01/09/21 23:59 23:59 23:59 23:59 Intake Total 1320 3287 3090 820 Output Total 640 106 1490 1300 Balance 670 3112 -986 -480 Meds/Results Medications: Active Medications Generic Name Dose Route Start Last Admin Trade Name Freq PRN Reason Stop Dose Admin Acetylcysteine 200 mg 01/06/21 08:00 01/09/21 09:40 Acetylcysteine 20% Inhal Soln 800 Mg/4 Ml Vial INHALATION 200 mg Q12HRT ROMAIN Administration Albuterol 2.5 mg 01/06/21 05:55 01/09/21 14:05 Albuterol Sulfate Neb 2.
[2021-01-09] MEDS: MAGNESIUM OXIDE 400 MG TABLET PO (17:53)
[2021-01-09] MEDS: FINASTERIDE 5 MG TABLET PO (17:54)
[2021-01-09 22:05] LABS: IFOB Positive Control Positive
[2021-01-09 22:06] LABS: Immunochemical Fecal Occult Bl Negative (N)
[2021-01-10] VITALS (12 sets, daily range): BP systolic 110–120; BP diastolic 59–62; PULSE 68–82; RESP 16–20; TEMP 36.6–36.7; O2SAT 96–100
[2021-01-10] MEDS: IPRATROPIUM BR 0.02% INH SOLN 0.5 MG/2.5 ML VIAL INHALATION ×4 (00:06→11:46)
[2021-01-10] MEDS: ALBUTEROL SULFATE NEB 2.5 MG/0.5 ML INH INHALATION ×4 (00:06→11:46)
[2021-01-10 06:16] LABS: Basophils Percent Auto 0.6 % (0.2-1.2); Eosinophils Absolute Auto 0.1 K/mm3 (0-0.3); Eosinophils Percent Auto 1.6 % (0-4.4); Hemoglobin 7.7 g/dL (14.0-18.0); Immature Granulocyte Absolute 0.02 K/mm3 (0.00-0.031); Immature Granulocyte Percent A 0.6 % (0-0.5); Lymphocytes Percent Auto 9.3 % (18.3-44.2); Mean Corpuscular HGB Conc 32.1 g/dl (32-36); Mean Corpuscular Hemoglobin 26.3 pg (26-34); Mean Corpuscular Volume 81.9 fl (80-100); Mean Platelet Volume 10.3 fl (7.4-10.4); Monocytes Absolute Auto 0.6 K/mm3 (0.1-0.6); Monocytes Percent Auto 17.7 % (2.6-8.5); Neutrophils Absolute Auto 2.3 K/mm3 (1.3-6.7); Neutrophils Percent Auto 70.2 % (45.5-73.1); Platelet Count Result 126 k/mm3 (150-375); Red Blood Count 2.93 M/mm3 (4.6-6.20); Red Cell Distribution Width 17.7 % (11.5-14.5); White Blood Count 3.2 K/mm3 (4.5-10.0)
[2021-01-10 06:27] LABS: Anion Gap 4 mmol/L (8-16); Blood Urea Nitrogen 7 mg/dL (9-20); Calcium 7.1 mg/dL (8.4-10.2); Carbon Dioxide 25 mmol/L (22-30); Chloride 99 mmol/L (98-107); Estimated CRCL calculation 76 ml/min; Estimated Glomerular Filt Rate > 60; Glucose 99 mg/dL (65-110); Potassium 4.1 mmol/L (3.4-5.0); Sodium 128 mmol/L (137-145)
[2021-01-10] MEDS: TAMSULOSIN HCL 0.4 MG CAPSULE PO (08:27)
[2021-01-10] MEDS: ASPIRIN 81 MG ENTERIC TABLET PO (08:27)
[2021-01-10] MEDS: ATORVASTATIN 40 MG TABLET PO (08:27)
[2021-01-10] MEDS: FINASTERIDE 5 MG TABLET PO (08:27)
[2021-01-10] MEDS: carvediloL 25 MG TABLET PO (08:27)
[2021-01-10] MEDS: PANTOPRAZOLE 40 MG TABLET PO (08:27)
[2021-01-10] MEDS: MAGNESIUM OXIDE 400 MG TABLET PO (08:28)
--- NOTE | 2021-01-10 13:27 | PM.DS ---
DS: Admitting Diagnosis Discharge Date 01/10/2021 Admitting Diagnosis Generalized weakness DS: Discharge Diagnosis Discharge Diagnosis (1) Pneumonia: Qualifiers: Laterality: right Lung location: upper lobe of lung Pneumonia type: due to unspecified organism Qualified Code(s): J18.9 - Pneumonia, unspecified organism Code(s): J18.9 - Pneumonia, unspecified organism Status: Acute Assessment and Plan: Chest CTA shows mucus plugging of the left upper lobe and he presents with respiratory symptoms. No fever or leukocytosis, though he is immunocompromised and likely not able to amount immune response Continue IV Zosyn Blood cultures remain no growth Supportive care to include bronchodilators, expectorants, antipyretics, and incentive spirometry Appreciate respiratory therapy evaluation. Continue with CPT techniques Currently requiring 1 L per nasal cannula, though no episodes of hypoxia are noted. Continue supplemental O2 as needed with goal saturation 92% or above, wean to goal. continue acetyl cystein inhalation, PEP therapy, Oxygen was tapered off and did not require any oxygen by the time of discharge. Will switch to Augmentin for 3 more days at the time of discharge (2) Malignant neoplasm of right upper lobe of lung: Code(s): C34.11 - Malignant neoplasm of upper lobe, right bronchus or lung Status: Acute Assessment and Plan: CTA shows right upper lung mass with involvement of the mediastinum, T4 vertebral body, and right 5th rib with. He is undergoing chemotherapy with Taxol and carboplatin, last chemo was 12/31/2020. Also undergoing radiation therapy Wednesday-Wednesday. Managed by oncologist, Dr. Brown at [facility]. Spoke with their office via phone and reviewed imaging reports, no change from prior imaging 12/17/2020 per phone report. The patient is scheduled for an appointment tomorrow with his oncologist. Their office is aware of his hospitalization and will contact him to reschedule follow-up, possibly for 01/10/2021 (3) COPD (chronic obstructive pulmonary disease): Code(s): J44.9 - Chronic obstructive pulmonary disease, unspecified Status: Acute Assessment and Plan: No wheezing, not in acute exacerbation. Continue bronchodilators (4) CAD (coronary artery disease): Code(s): I25.10 - Atherosclerotic heart disease of [place] coronary artery without angina pectoris Status: Acute Assessment and Plan: No acute issues. Continue carvedilol and lisinopril. Nitroglycerin p.r.n. (5) Weakness: Code(s): R53.1 - Weakness Status: Acute Assessment and Plan: Likely secondary to malignancy and recent chemotherapy and radiation treatments, likely worsened by pneumonia. He reports he ?collapsed? and his legs and knees gave out on him. He did not fall and his son was able to lower him to the ground. Appreciate PT/OT evals. Improved significantly patient decided to go home will set up home health at discharge (6) Poor appetite: Code(s): R63.0 - Anorexia Status: Acute Assessment and Plan: Decreased appetite. Continue gentle IV fluids in light of poor PO intake. Dietary supplements t.i.d.. Encourage p.o. intake. Hopefully his appetite will improve as he begins feeling better with treatment as described above. (7) Pancytopenia: Code(s): D61.818 - Other pancytopenia Status: Acute Assessment and Plan: Likely related to chemotherapy. White blood cell count 3300. Platelets slightly decreased at 115k. Hemoglobin and hematocrit decreased on baseline, though no prior labs to establish a baseline. Hemoglobin was 8.2 on presentation and declined to 7.3 today. He denies any episodes of bleeding. Vital signs are stable. Will repeat H&H this afternoon to ensure remaining stable, will also check iron panel. Consider Hematology consultation if no further improvement. hb do
== END 2021-01-10 16:50 | disposition home or self-care (01) | DRG 193 ==
LOC: ANHED 18:09 → ANH3MEDSUR 20:28
PROVIDERS: Physician Assistant; Admitting Provider Internal Medicine; Emergency Provider Emergency Medicine; PCP Family Medicine; Visit Provider Internal Medicine
DX: J18.9 Pneumonia, unspecified organism (principal); D61.810 Antineoplastic chemotherapy induced pancytopenia; J44.0 Chronic obstructive pulmonary disease with (acute) lower respiratory infection; C34.11 Malignant neoplasm of upper lobe, right bronchus or lung; N13.30 Unspecified hydronephrosis; C79.89 Secondary malignant neoplasm of other specified sites; D84.9 Immunodeficiency, unspecified; I25.10 Atherosclerotic heart disease of native coronary artery without angina pectoris; T45.1X5A Adverse effect of antineoplastic and immunosuppressive drugs, initial encounter; R63.0 Anorexia; I11.9 Hypertensive heart disease without heart failure; E87.6 Hypokalemia; E78.5 Hyperlipidemia, unspecified; R55 Syncope and collapse; R53.1 Weakness; N32.89 Other specified disorders of bladder; R19.5 Other fecal abnormalities; Z28.21 Immunization not carried out because of patient refusal; Z87.891 Personal history of nicotine dependence; Z79.82 Long term (current) use of aspirin; Z79.899 Other long term (current) drug therapy
CPT/HCPCS: 36415; 36430; 70450; 71275; 74176; 80048; 80053; 81001; 82274; 82728; 82948; 83540; 83550; 83605; 83735; 85014; 85018; 85025; 85027; 85055; 86850; 86900; 86901; 86920; 87040; 93005; 94640; 94667; 94668; 94669; 96365; 97110; 97116; 97162; 97166; 97530; 97535; 99285; A9270; G0378; J0610; J2405; J2543; J3475; J7030; J7050; P9016; Q9967

== ENCOUNTER 2021-11-07 15:01 | Emergency (ER) | payer MEDICARE, SELFPAY ==
[2021-11-07 15:14] VITALS: BP 95/60; PULSE 78; RESP 14; TEMP 36.7; O2SAT 100
[2021-11-07 17:07] VITALS: O2SAT 99
[2021-11-07 17:08] VITALS: BP 110/73; O2SAT 100
[2021-11-07 17:15] VITALS: O2SAT 100
[2021-11-07 17:16] VITALS: BP 100/67; O2SAT 100
--- NOTE | 2021-11-07 17:52 | ED.RECABL ---
HPI - Recheck/Abnormal Lab/Rx General Chief Complaint: Recheck/Abnormal Lab/Rx Stated Complaint: hypotensive Time Seen by Provider: 11/07/21 17:11 History of Present Illness HPI narrative: Patient is a 71-year-old male with a history of lung cancer, hyperlipidemia, COPD presenting with possible hypotension. Patient states that he checks his blood pressure at home with a wrist cuff. States today he got several readings that were in the 70s over 50s. He called his oncologist's office who advised that he come in for evaluation. States that he was recently seen by his PCP and they decreased his lisinopril due to low blood pressures. Today he denies any complaints. States he feels well. No lightheadedness, palpitations, chest pain, shortness of breath. He denies recent nausea, vomiting, diarrhea, dysuria, leg swelling, fevers, abdominal pain. Related Data Home Medications Medication Instructions Recorded Confirmed aspirin 81 mg tablet,delayed 81 mg PO DAILY 08/02/19 01/22/21 release (Adult Low Dose Aspirin) atorvastatin 40 mg tablet 40 mg PO DAILY 08/02/19 01/22/21 carvedilol 25 mg tablet 25 mg PO Q12H 08/02/19 01/22/21 albuterol 90 mcg PO PRN 01/06/21 01/22/21 fluticasone propionate 50 50 mcg intranasal PRN PRN Chest 01/06/21 01/22/21 mcg/actuation nasal Pain spray,suspension nitroglycerin 0.4 mg sublingual 0.4 mg sublingual Q5M PRN chest 01/06/21 01/22/21 tablet pain lisinopril 40 mg tablet 20 mg PO DAILY 11/05/21 11/05/21 Allergies Allergy/AdvReac Type Severity Reaction Status Date / Time No Known Allergies Allergy Unknown Verified 11/05/21 10:51 Review of Systems Review of Systems: All systems reviewed & are unremarkable except as noted in HPI and below PMFSH Past Medical History Medical History Acute on chronic anemia CAD (coronary artery disease) COPD (chronic obstructive pulmonary disease) Dyslipidemia Hypertensive heart disease IFG (impaired fasting glucose) Metastatic lung cancer (metastasis from lung to other site) Occult blood in stools Social History Social History Smoking packs per day: 1 Smoking cigarettes per day: 20.0 Years smoked: 40 Smoking pack-years: 40.00 Smoking status: Former smoker Tobacco type: cigarettes Second hand tobacco smoke exposure: No Alcohol intake: current Drinks per week: 8 Substance use: never Substance use type: does not use Gender identity (if verbalized by the patient): Male Sexual Orientation (if Verbalized by the Patient): Straight or Heterosexual Spiritual care concerns: No Exam Narrative: GENERAL: Well-appearing, well-nourished, and in no acute distress. HEAD: Normocephalic, atraumatic. EYES: PERRLA and EOMI. ENT: Nares clear, no rhinorrhea or epistaxis. Mucous membranes moist. NECK: Supple. CHEST: Scattered wheezing bilaterally. No respiratory distress. HEART: Regular rate and rhythm. No murmur heard. Normal peripheral pulses. ABDOMEN: Soft, nontender, nondistended, normal active bowel sounds. EXTREMITIES: Normal range of motion. No edema. SKIN: Warm, dry, no rash. NEURO: No focal deficits. Alert and oriented x3. PSYCH: Normal mood and affect. Course Vital Signs Vital signs: Vital Signs Temperature 98.1 F 11/07/21 15:14 Pulse Rate 78 11/07/21 15:14 Respiratory Rate 14 11/07/21 15:14 Blood Pressure 95/60 L 11/07/21 15:14 Pulse Oximetry 100 11/07/21 15:14 Oxygen Delivery Room Air 11/07/21 15:14 Temperature 98.1 F 11/07/21 15:14 Pulse Rate 78 11/07/21 15:14 Respiratory Rate 18 11/07/21 19:43 Blood Pressure 100/67 11/07/21 17:16 Pulse Oximetry 100 11/07/21 17:16 Oxygen Delivery Room Air 11/07/21 15:14 MDM - Recheck/Abnormal Lab/Rx MDM Narrative Medical decision making narrative: Patient is a 71-year-old male presenting with a hypotensive reading from an
[2021-11-07 18:58] LABS: Basophils Percent Auto 0.2 % (0.2-1.2); Eosinophils Absolute Auto 0.1 K/mm3 (0-0.3); Eosinophils Percent Auto 2.1 % (0-4.4); Hematocrit 28.6 % (42.0-52.0); Hemoglobin 8.8 g/dL (14.0-18.0); Immature Granulocyte Absolute 0.04 K/mm3 (0.00-0.031); Immature Granulocyte Percent A 0.8 % (0-0.5); Lymphocytes Absolute Auto 0.89 K/mm3 (0.9-3.2); Lymphocytes Percent Auto 18.7 % (18.3-44.2); Mean Corpuscular HGB Conc 30.8 g/dl (32-36); Mean Corpuscular Hemoglobin 28.7 pg (26-34); Mean Corpuscular Volume 93.2 fl (80-100); Mean Platelet Volume 8.5 fl (7.4-10.4); Monocytes Absolute Auto 0.8 K/mm3 (0.1-0.6); Monocytes Percent Auto 16.6 % (2.6-8.5); Neutrophils Absolute Auto 2.9 K/mm3 (1.3-6.7); Neutrophils Percent Auto 61.6 % (45.5-73.1); Platelet Count Result 158 k/mm3 (150-375); Red Blood Count 3.07 M/mm3 (4.6-6.20); Red Cell Distribution Width 17.6 % (11.5-14.5); White Blood Count 4.8 K/mm3 (4.5-10.0)
[2021-11-07 19:16] LABS: Anion Gap 10 mmol/L (8-16); Blood Urea Nitrogen 13 mg/dL (9-20); Calcium 8.7 mg/dL (8.4-10.2); Carbon Dioxide 27 mmol/L (22-30); Chloride 100 mmol/L (98-107); Estimated CRCL calculation 58 ml/min; Estimated Glomerular Filt Rate > 60; Glucose 89 mg/dL (65-110); Potassium 4.3 mmol/L (3.4-5.0); Sodium 137 mmol/L (137-145)
--- NOTE | 2021-11-07 19:16 | PC.NURSE ---
Report received from MONA Aburto. Assumed care of patient at this time.
[2021-11-07 19:43] VITALS: RESP 18
== END 2021-11-07 19:44 | disposition home or self-care (01) ==
PROVIDERS: Emergency Provider Emergency Medicine; PCP Family Medicine
DX: I95.9 Hypotension, unspecified (principal); C34.90 Malignant neoplasm of unspecified part of unspecified bronchus or lung; C79.9 Secondary malignant neoplasm of unspecified site; J44.9 Chronic obstructive pulmonary disease, unspecified; I25.10 Atherosclerotic heart disease of native coronary artery without angina pectoris; I11.9 Hypertensive heart disease without heart failure; E78.5 Hyperlipidemia, unspecified; D64.9 Anemia, unspecified; Z79.82 Long term (current) use of aspirin
CPT/HCPCS: 36415; 80048; 85025; 99283